=== PATIENT | female | born 1995 | race Caucasian/White ===

== ENCOUNTER 2018-06-07 15:30 | Emergency (ER) | END 2018-06-07 17:47 | disposition home or self-care (01) ==

== ENCOUNTER 2018-11-03 10:53 | Emergency (ER) | payer BC ==
[~2018-11-03] VITALS: Ht 165.1 cm; Wt 78.3 kg
[~2018-11-03 10:53] MED LIST: LORA-441 PO; PREN-39 PO
[2018-11-03 11:04] VITALS: Ht 165.1 cm; Wt 78.3 kg
[2018-11-03] MEDS ORDERED: IBUP-1542 PO (16:28)
[2018-11-03] MEDS ORDERED: LIDOCAINE 1% (MPF) 5 ML VIAL INJ ONE (16:30)
[2018-11-03] MEDS ORDERED: CEFTRIAXONE 250 MG INJ IM ONE (16:30)
[2018-11-03] MEDS ORDERED: AZITHROMYCIN 250 MG TAB PO ONE (16:30)
[2018-11-03 16:40] VITALS: BP 135/80; PULSE 88; RESP 18
[2018-11-03] MEDS ORDERED: HYDR-4011 PO (16:44)
--- NOTE | 2018-11-04 15:35 | ERD ---
ER Documentation Chief Complaint Chief Complaint left pelvic pain and lower back pain x 3 weeks HPI 23-year-old presents with history of dysuria lower back pain, vaginal discharge and lower left quadrant pain for the past 3 weeks. States that the pain is intermittent. Is not taking treatments. Pain is non radiating, made worse with intercourse. in addition she denies any fevers, nausea, vomiting, diarrhea, hematuria, . She is sexually active only with her partner. Denies possibility of . Denies past medical history. Denies allergies. Denies medications . Denies surgeries. Denies alcohol, tobacco, drug use. Up to date on vaccines. ROS All systems reviewed and are negative except as per history of present illness. Medications Home Meds Active Scripts Hydrocodone/Acetaminophen ([place] 5-325 Tablet) 1 Each Tablet, 1 TAB PO Q6H PRN for PAIN, #10 TAB Prov:ZAHRAABELCHANDUSTACEY 11/03/18 Ibuprofen* (Motrin*) 600 Mg Tab, 600 MG PO Q6H PRN for PAIN AND OR ELEVATED TEMP, #30 TAB Prov:STACEY HAWKINS 11/03/18 Lorazepam* (Ativan*) 0.5 Mg Tablet, 0.5 MG PO Q8H PRN for ANXIETY, #10 TAB Prov:COURTNEY DORMAN PA-C 06/07/18 Reported Medications Vits W-Ca,Fe,Fa(<1MG) ( Vitamins) 1 Tab Tablet, 1 TAB PO DAILY 10/06/14 Allergies Allergies: Coded Allergies: No Known Allergy (Unverified , 06/07/18) PMhx/Soc Medical and Surgical Hx: pt denies Medical Hx, pt denies Surgical Hx History of Surgery: No Anesthesia Reaction: No Hx Neurological Disorder: No Hx Respiratory Disorders: No Hx Cardiac Disorders: No Hx Psychiatric Problems: No Hx Miscellaneous Medical Probl: No Hx Alcohol Use: Yes (socially) Hx Substance Use: No Hx Tobacco Use: No Smoking Status: Never smoker FmHx Family History: No diabetes, No coronary disease, No other Physical Exam Vitals Vital Signs Date Temp Pulse Resp B/P (MAP) Pulse Ox O2 O2 Flow FiO2 Time Delivery Rate 11/03/18 98.6 88 18 135/80 99 Room Air 16:40 (98) 11/03/18 97.6 80 18 133/71 99 11:04 (91) Physical Exam Const: No acute distress Head: Atraumatic Eyes: Normal Conjunctiva ENT: Normal External Ears, Nose and Mouth. Neck: Full range of motion. No meningismus. Resp: Clear to auscultation bilaterally Cardio: Regular rate and rhythm, no murmurs Abd: LLQ tenderness. Otherwise soft, non tender, non distended. Normal bowel sounds. No cervical motion tenderness. Skin: No petechiae or rashes Back: No midline or flank tenderness Ext: No cyanosis, or edema Neur: Awake and alert Psych: Normal Mood and Affect Results 24 hrs Laboratory Tests Test 11/03/18 14:09 11/03/18 14:37 Urine Color YELLOW Urine Clarity SLIGHTLY CLOUDY Urine pH 7.0 Urine Specific [place] 1.019 Urine Ketones NEGATIVE mg/dL Urine Nitrite NEGATIVE mg/dL Urine Bilirubin NEGATIVE mg/dL Urine Urobilinogen NEGATIVE mg/dL Urine Leukocyte Esterase NEGATIVE Qi/ul Urine Microscopic RBC 1 /HPF Urine Microscopic WBC 1 /HPF Urine Squamous Epithelial Cells FEW /HPF Urine Bacteria FEW /HPF Urine Hemoglobin 1+ mg/dL Urine Glucose NEGATIVE mg/dL Urine Total Protein NEGATIVE mg/dl POC Beta HCG, Qualitative NEGATIVE Current Medications Medications Dose Sig/[place] Start Time Status Last (Trade) Ordered Route PRN Stop Time Admin Dose Reason Admin 1,000 mg ONCE ONCE 11/03/18 DC 11/03/18 Azithromycin PO 16:30 16:33 (Zithromax) 11/03/18 16:31 Ceftriaxone 250 mg ONCE ONCE 11/03/18 DC 11/03/18 Sodium IM 16:30 16:33 (Rocephin) 11/03/18 16:31 Lidocaine 5 ml ONCE ONCE 11/03/18 DC 11/03/18 (Xylocaine INJ 16:30 16:33 1% (Mpf)) 11/03/18 16:31 Procedures/MDM DIAGNOSTIC IMAGING REPORT Patient: SARAH ANGELA : 1995 Age: 23 Sex: F MR #: [id number] DOS: 11/03/18 1358 Ordering MD: STACEY HAWKINS Location: [facility] Room/Bed: PROCEDURE: US Pelvis. CLINICAL INDICATION: Pelvic pain. TECHNIQUE: The pelvis was evaluated with transabdominal and transvaginal sonography in the axial and sagittal planes. COMPARISON: Pelvic ultrasound dated 12/21/2014. FINDINGS: Uterus: 7.9 x 3.5 x 3.8 cm. Endometrium: 5.0 mm. An IUD is present within the endometrial canal in satisfactory position. Right ovary: 2.9 x 1.5 x 1.7 cm. Left ovary: 2.1 x 1.9 x 2.5 cm. Uterine masses: None. Ovarian masses: None. Color Doppler and pulsed Doppler sonography demonstrate normal flow to the ovaries. Other pelvic masses: None. Free fluid: None. IMPRESSION: 1. IUD in satisfactory position within the endometrial canal. 2. Otherwise unremarkable pelvic ultrasound. RPTAT: QQ .Nahid Salinas MD, MD Date Time Electronically viewed and signed by .Nahid Salinas MD, MD on 11/03/2018 16:12 .R/ CC: STACEY HAWKINS [phone] 23-year-old presents with history of dysuria lower back pain, vaginal discharge and lower left quadrant pain for the past 3 weeks. States that the pain is intermittent. Is not taking treatments. Pain is non radiating, made worse with intercourse. in addition she denies any fevers, nausea, vomiting, diarrhea, hematuria, . She is sexually active only with her partner. Given patient exam and history, decision was made to treat prophylactically for GC with ceftriaxone and azithromycin. In addition, patient given Rx for Keflex to rule out possibility of UTI. Gave patient ibuprofen but she said it was not strong enough for pain so I gave her a short course of [place] instead. Ultrasound was ordered to rule out emergent conditions such as torsion or ovarian tubal abscess or ectopic, results were within normal limits. I have low suspicion for appendicitis, intra-abdominal abscess, or other emergent condition. Patient discharged with strict ER precautions. Patient advised to follow up with PMD. All questions answered at discharge. Departure Diagnosis: Primary Impression: Pelvic pain Condition: Stable Patient Instructions: Pelvic Pain, Unknown Cause Additional Instructions: FOLLOW UP WITH YOUR PRIMARY CARE PHYSICIAN TOMORROW.Return to this facility if you are not improving as expected. STACEY HAWKINS Nov 04, 2018 15:35
== END 2018-11-03 16:48 | disposition home or self-care (01) ==
LOC: FTE 10:53
DX: R10.2 Pelvic and perineal pain (principal)
CPT/HCPCS: 76830; 76856; 81001; 81025; 87591; 96372; 99285; J0696; Z7610

== ENCOUNTER 2019-02-03 10:49 | Emergency (ER) | payer BC ==
[~2019-02-03] VITALS: Ht 165.1 cm; Wt 72.3 kg
[~2019-02-03 10:49] MED LIST changes: +HYDR-4011 PO; +IBUP-1542 PO
[2019-02-03 11:22] VITALS: Ht 165.1 cm; Wt 72.3 kg
[2019-02-03] MEDS ORDERED: IBUP-1542 PO (13:41)
--- NOTE | 2019-02-03 14:35 | ERD ---
ER Documentation Chief Complaint Chief Complaint Bilateral ankle pain after a fall last night HPI 23-year-old female presents with complaint of bilateral ankle pain after falling while dancing last night. Patient states that she fell from standing position. Patient states that she has been unable to ambulate but was able to drive here. States that the pain is made worse with ambulation and palpation. Does not want pain medications at this time. Denies any treatments. Denies any numbness or tingling or weakness. ROS All systems reviewed and are negative except as per history of present illness. Medications Home Meds Active Scripts Ibuprofen* (Motrin*) 600 Mg Tab, 600 MG PO Q6H PRN for PAIN AND OR ELEVATED TEMP, #30 TAB Prov:STACEY HAWKINS 02/03/19 Hydrocodone/Acetaminophen ([place] 5-325 Tablet) 1 Each Tablet, 1 TAB PO Q6H PRN for PAIN, #10 TAB Prov:STACEY HAWKINS 11/03/18 Ibuprofen* (Motrin*) 600 Mg Tab, 600 MG PO Q6H PRN for PAIN AND OR ELEVATED TEMP, #30 TAB Prov:STACEY HAWKINS 11/03/18 Lorazepam* (Ativan*) 0.5 Mg Tablet, 0.5 MG PO Q8H PRN for ANXIETY, #10 TAB Prov:COURTNEY DORMAN PA-C 06/07/18 Reported Medications Vits W-Ca,Fe,Fa(<1MG) ( Vitamins) 1 Tab Tablet, 1 TAB PO DAILY 10/06/14 Allergies Allergies: Coded Allergies: No Known Allergy (Unverified , 06/07/18) PMhx/Soc History of Surgery: No Anesthesia Reaction: No Hx Neurological Disorder: No Hx Respiratory Disorders: No Hx Cardiac Disorders: No Hx Psychiatric Problems: No Hx Miscellaneous Medical Probl: No Hx Alcohol Use: Yes (socially) Hx Substance Use: Yes Hx Tobacco Use: Yes Smoking Status: Current every day smoker FmHx Family History: No diabetes, No coronary disease, No other Physical Exam Vitals Vital Signs Date Temp Pulse Resp B/P (MAP) Pulse Ox O2 O2 Flow FiO2 Time Delivery Rate 02/03/19 99.0 95 18 120/64 97 11:22 (82) Physical Exam Const: No acute distress Head: Atraumatic Eyes: Normal Conjunctiva ENT: Normal External Ears, Nose and Mouth. Neck: Full range of motion. No meningismus. Resp: Clear to auscultation bilaterally Cardio: Regular rate and rhythm, no murmurs Abd: Soft, non tender, non distended. Normal bowel sounds Skin: No petechiae or rashes Back: No midline or flank tenderness Ext: Tenderness to palpation over the lateral malleolus of bilateral ankles with mild edema noted. Patient unable to ambulate. There is no erythema, ecchymosis, or serenity deformity noted. Overlying skin is intact. Compartments are soft and warm. There is no pallor or cyanosis. Range of motion, distal pulses, and distal sensation is intact. There is normal cap refill. Neur: Awake and alert Psych: Normal Mood and Affect Procedures/MDM MDM: Bilateral ankle and foot x-rays were performed results within normal limits aside from showing some mild swelling. Patient possibly has bilateral ankle sprain. Patient placed in Lee wrap in both ankles and given crutches. Splint Assessment: Neurovascularly intact post splint placement with good fit. Patient discharged with Rx for ibuprofen. I have low suspicion for neurovascular compromise, compartment syndrome, fracture, osteomyelitis, septic joint, or other emergent condition. Departure Diagnosis: Primary Impression: Ankle injury Additional Impression: Ankle pain Condition: Stable Patient Instructions: What Are Ankle Sprains?, Treating Ankle Sprains, Sprain, Ankle, With X-Ray Referrals: EL DEBBIE GAUTHIER (PCP) Additional Instructions: FOLLOW UP WITH YOUR PRIMARY CARE PHYSICIAN TOMORROW.Return to this facility if you are not improving as expected. STACEY HAWKINS February 03, 2019 14:35
[2019-02-03 14:47] VITALS: BP 125/70; PULSE 65; RESP 16
== END 2019-02-03 14:51 | disposition home or self-care (01) ==
LOC: FTE 10:49
DX: S99.911A Unspecified injury of right ankle, initial encounter (principal); F17.210 Nicotine dependence, cigarettes, uncomplicated; S99.912A Unspecified injury of left ankle, initial encounter; W18.39XA Other fall on same level, initial encounter; Y92.9 Unspecified place or not applicable
CPT/HCPCS: 73610; 73630; 81025